=== PATIENT | male | born 1965 | race Caucasian/White ===

== ENCOUNTER 2017-06-02 14:40 | Emergency (ER) | payer MEDICARE, OTHER ==
[~2017-06-02] VITALS: Ht 182.9 cm; Wt 81.6 kg
[2017-06-02 15:26] VITALS: BP 118/70
[2017-06-02 19:50] VITALS: BP 116/75
--- NOTE | 2017-06-02 21:10 | Emergency Room Report ---
History of Present Illness General Chief Complaint: Alcohol Intoxication Source: EMS Present Illness HPI 52 YO male presents to the ED from board and Care or ETOH intoxication. Pt. is NAD, pt. is alert, no obvious signs of trauma. Admits to drinking " a lot " today. denies hx of ETOH w/d or seizures. Denies trauma or fall. Denies SI/HI. pt. denies pain at this time. Allergies: Coded Allergies: UNABLE TO ASSESS (Unverified , 06/02/17) Patient History Past Medical History: see triage record Past Surgical History: none Pertinent Family History: none Social History: Reports: alcohol use Reviewed Nursing Documentation: PMH: Agreed; PSxH: Agreed Nursing Documentation-PMH Past Medical History: No History, Except For History Of Psychiatric Problem: Yes - SUBSTANCE ABUSE Review of Systems All Other Systems: negative except mentioned in HPI Physical Exam Vital Signs Date Time Temp Pulse Resp B/P (MAP) Pulse Ox O2 Delivery O2 Flow Rate FiO2 06/02/17 14:25 98.0 108 20 117/70 99 Room Air 98.1 Sp02 EP Interpretation: reviewed, normal General Appearance: no apparent distress, alert, GCS 15, non-toxic, other - Disheveled Head: normocephalic, atraumatic Eyes: bilateral eye normal inspection, bilateral eye PERRL ENT: hearing grossly normal, normal voice Neck: full range of motion, no bony tend Respiratory: chest non-tender, lungs clear, normal breath sounds, no respiratory distress, no accessory muscle use, no wheezing, speaking full sentences Cardiovascular #1: tachycardia - regular rate, mild tachycardia Gastrointestinal: normal bowel sounds, non tender, soft, non-distended, no guarding, other Rectal: deferred Genitourinary: normal inspection Musculoskeletal: back normal, gait/station normal, normal range of motion, non- tender Neurologic: alert, responsive, motor strength/tone normal, sensory intact, speech normal - slurred speech, pt. also missing some teeth. , other - Pt is lethargic, grossly normal Psychiatric: judgement/insight normal, no suicidal/homicidal ideation Skin: normal color, no rash, warm/dry, well hydrated, other - anullar hair pattern regrowth noted in multiple states on the scalp. Medical Decision Making PA Attestation Dr. Kaur is my supervising Physician whom patient management has been discussed with. Restraint Attestation Fani, Maria Elena Mcguire PA-C, have personally evaluated this patient. Laboratory tests have been reviewed and addressed accordingly. The patient is deemed to present a danger to themselves and/or others. This is based on the exam, history (provided by EMS) and observed behavior. Attempts for non-invasive measures have been considered and/or attempted, however, have been futile. It is in the best interest of the nursing staff, the patient, and others involved in this patient's care that non-behavioral restraints be applied. Patient evaluation reveals the following: Unsteady gait, several falls in the department. pt. clinically not sober. no obvious focal neurological deficits. Diagnostic Impression: Primary Impression: Acute alcoholic intoxication Qualified Codes: F10.929 - Alcohol use, unspecified with intoxication, unspecified ER Course 52 YO male presents to the ED from board and Care or ETOH intoxication. Pt. is NAD, pt. is alert, no obvious signs of trauma. Admits to drinking " a lot " today. denies hx of ETOH w/d or seizures. Denies trauma or fall. Denies SI/HI. pt. denies pain at this time. Ddx considered but are not limited to ETOH, Trauma, Syncope, dementia, OD,Psych just to name a few. Vital signs: are WNL, pt. is afebrile H&PE are most consistent with ETOH intoxication. NAD. suspected dermatological condition of the scalp due to hair pattern- non-emergent. ORDERS: -Serum ETOH: 319 -Accu-Check: ED INTERVENTIONS: -1 Liter NS -Observance while he detoxifies. -Pt. was allowed to sleep/rest. -PT. became awake and alert, however continues to be unsteady on his feet. Pt. keeps wanting to leave. He is stumbling about the ED and has fallen three times. I feel he is not yet clinically sober and it would be dangerous to let him leave the ED at this time. CT Head No-Contrast is ordered. -- after failed attempts to verbally request pt. remain in his bed, and not wander about the ED. he has been escorted back to the room multiple times. - non-Behavioral restraints were ordered. - Labs Test 06/02/17 15:04 Serum Alcohol 319 mg/dL Last Vital Signs Date Time Temp Pulse Resp B/P (MAP) Pulse Ox O2 Delivery O2 Flow Rate FiO2 06/02/17 19:50 98.2 102 19 116/75 92 Room Air 98.2 Signed Out To: Dr. Ivy Referrals: [facility],REFERR[facility] (PCP) Maria Elena Mcguire Jun 02, 2017 21:10
[2017-06-02 21:35] VITALS: BP 127/63
[2017-06-02 21:50] VITALS: BP 128/63
[2017-06-02 22:20] VITALS: BP 127/63
[2017-06-02 23:00] VITALS: BP 118/63
[2017-06-03 01:20] VITALS: BP 119/64
[2017-06-03 04:25] VITALS: BP 121/63
[2017-06-03 06:55] VITALS: BP 127/66
[2017-06-03 08:17] VITALS: BP 120/80
--- NOTE | 2017-06-03 09:16 | Diagnostic Imaging Report ---
Indication: Reason For Exam: FALL Technique: Continuous helical CT scanning of the head was performed without intravenous contrast material. Axial and coronal 5 mm sections were generated. Radiation dose was minimized using automated exposure control Dose: Total Dose Length Product - DLP 1407.[address] Dose Index - CTDIvol(s) 70.38 mGy. Comparison: none Findings: The ventricular system is normal in size and configuration. There is no shift of midline structures. No abnormal extra-axial fluid collections are noted. There is no evidence of intracerebral bleeding. No other abnormal high or low density areas are noted within the brain. There is ethmoid sinus disease. The calvarium is intact. The mastoids are clear Impression: Negative for acute intracranial bleed or mass effect . Incidental finding of sinus disease This agrees with the preliminary interpretation provided overnight by [facility]. The CT scanner at [facility] is accredited by the [employer] and the scans are performed using protocols designed to limit radiation exposure to as low as reasonably achievable to attain images of sufficient resolution adequate for diagnostic evaluation.
== END 2017-06-03 08:19 | disposition home or self-care (01) ==
LOC: EDBD 14:40 → EMR 15:04
DX: F10.129 Alcohol abuse with intoxication, unspecified (principal); J32.2 Chronic ethmoidal sinusitis
CPT/HCPCS: 36415; 70450; 82962; 96374; 99284; G0480; 80329